=== PATIENT | male | born 1945 | race Caucasian/White ===

== ENCOUNTER 2017-12-21 10:30 | Emergency (ER) | payer MEDICARE, OTHER ==
[2017-12-21 10:49] VITALS: TEMP 96; O2SAT 99
--- NOTE | 2017-12-21 11:17 | RAD ---
EXAM DESCRIPTION: Chest,2 Views CLINICAL HISTORY: 72 years Male, fall Plavix COMPARISON: CT scan of the head without contrast on this visit. TECHNIQUE: AP and lateral images. FINDINGS: Mild hyperinflation. Atelectasis versus scarring in the left base. Senescent densities bilaterally. No consolidation. No pleural effusion or pneumothorax. Aorta atherosclerotic calcification with no mediastinal widening. Mediastinal sternotomy wires. In size and pulmonary vascularity unremarkable. Decreased bone density in the thoracic spine with disc space narrowing. No compression deformities in the visualized vertebra. IMPRESSION: Probable atelectasis versus scarring left lung base. Otherwise no radiographic evidence of acute cardiopulmonary disease, pleural hemorrhage, or traumatic chest injury. Senescent lung markings. Electronically signed by: Sathya Viveros MD 12/21/2017 11:16 AM [employer]
--- NOTE | 2017-12-21 11:23 | CT ---
EXAM DESCRIPTION: Head: Computed Tomography. CLINICAL HISTORY: fall on street curb. Patient takes Plavix. COMPARISON: Chest x-ray on the same visit. TECHNIQUE: Non-helical axial scans through the skull and brain, at 2.5 mm intervals, non-contrast. Coronal and sagittal 2.0 mm reconstructions. Total Exam DLP: 859.97 mGy-cm. This exam was performed according to our departmental dose-optimization program which includes automated exposure control, adjustment of the mA and/or kV according to patient size and/or use of iterative reconstruction technique; to reduce radiation dose to as low as reasonably achievable (ALARA). FINDINGS: No hemorrhage, no mass-effect, and no midline shift. Minimal symmetric periventricular low-density in the white matter bilaterally. No abnormal radiodense material in the brain parenchyma. Vascular calcifications anterior and posterior circulations; physiologic calcifications in the pineal gland and choroid plexus. No effacement or displacement of the ventricles, CSF spaces, or subdural spaces. No extra axial fluid collection or hemorrhage. No gross abnormalities of the bony calvarium. Included paranasal sinuses and mastoid air cells are well - aerated. IMPRESSION: 1. No hemorrhage: intra-axial or extra-axial, no mass effect, no midline shift. . Minimal periventricular leukomalacia bilaterally most likely a result of cerebral microvascular disease. Ventricles cisterns and extra-axial spaces are mildly prominent but this is interpreted to be age-related. Electronically signed by: Sathya Viveros MD 12/21/2017 11:22 AM [employer] [facility]
[2017-12-21] MEDS ORDERED: NEOMYCIN-BACITRACIN-POLYMYXIN 0.9 GM UD TOP ONE (11:35)
--- NOTE | 2017-12-21 11:35 | ED.PDOC ---
History of Present Illness - General Chief Complaint: Head Injury Stated Complaint: head injury Time Seen by Provider: 12/21/17 10:40 Source: patient Exam Limitations: no limitations - History of Present Illness Initial Comments: The patient is a 72-year-old male presenting to the emergency room after having fallen outside. The patient was going up a step and had his hands incapacitated by scope when he fell forward. He had the ground with his forehead and has a mild abrasion and hematoma above the left eye. He is also complaining of some chest pain with movement. He did apparently hit his chest and strained himself while trying to catch himself. He has had a CABG in the past. He is not short of breath. He is not having any pain when he doesn't move. No pain prior to the event. No syncope or near-syncope. No altered mental status. No nausea or vomiting. No vision changes or hearing changes. No evidence of any broken nose. Extraocular movement appears preserved. The patient has good vision out of his right eye but chronically poor vision out of his left eye. He is alert oriented and interactive. Timing/Duration: momentarily Severity: mild Improving Factors: nothing Worsening Factors: nothing Associated Symptoms: denies symptoms Allergies/Adverse Reactions: Allergies Penicillins Allergy (Verified 12/21/17 10:49) Home Medications: Ambulatory Orders Clopidogrel Bisulfate [Plavix] 75 mg PO QD 12/21/17 Review of Systems - Review of Systems Constitutional: States: no symptoms reported EENTM: States: blurred vision - chronic on the left Respiratory: States: no symptoms reported Cardiology: States: chest pain - with movement Gastrointestinal/Abdominal: States: no symptoms reported Genitourinary: States: no symptoms reported Musculoskeletal: States: no symptoms reported Skin: States: see HPI Neurological: States: no symptoms reported Endocrine: States: no symptoms reported All other Systems: No Change from Baseline Past Medical History (General) - Patient Medical History Hx Stroke: No Hx Cardiac Disorders: Yes Hx Congestive Heart Failure: No Hx Hypertension: Yes Hx Diabetes: Yes Surgical History: coronary bypass surgery - Vaccination History Hx Tetanus, Diphtheria Vaccination: - unknown Hx Influenza Vaccination: No Hx Pneumococcal Vaccination: No - Social History Hx Tobacco Use: Yes Family Medical History - Family History Father Family History: Unknown Living Status: Unknown Physical Exam - Physical Exam General Appearance: Alert, Comfortable, No apparent distress Eye Exam: left other - ee history of present illness Ears, Nose, Throat: normal ENT inspection, normal pharynx Neck: full range of motion, supple Respiratory: lungs clear, normal breath sounds, no respiratory distress, no accessory muscle use Cardiovascular/Chest: normal peripheral pulses, no edema, other - the patient does have some diffuse anterior chest wall discomfort palpation. There are no lacerations. No crepitus. No bruising. Regular rate. Peripheral Pulses: radial,right: 2+, radial,left: 2+, dorsalis pedis,right: 2+, dorsalis pedis,left: 2+ Gastrointestinal/Abdominal: non tender, soft Rectal Exam: deferred Back Exam: normal inspection Extremity: normal range of motion, non-tender, normal inspection, no pedal edema , normal capillary refill Neurologic: material processor II-XII nml as tested, no motor/sensory deficits, alert, normal mood/affect, oriented x 3 Skin Exam: normal color Comments: Vital Signs - 8 hr 12/21/17 10:44 Temperature 96 F L Pulse Rate [ 62 Left Brachial] Respiratory 20 Rate Blood Pressure 188/87 [Left Arm] O2 Sat by Pulse 99 Oximetry Progress - Progress Progress: 12/21/17 11:36 the patient is a 72-year-old male presenting after a fall. There is no clinical evidence to support a concussion however a small one is still possible. Head CT shows no evidence of any acute intracranial abnormalities. There are chronic findings. Chest x-ray shows no evidence of any widening of the mediastinum. Sternotomy wires appear to be in place. No evidence of any pneumothorax. No evidence of any obvious fractured ribs. The patient will likely be sore for the next couple of weeks. The abrasion and hematoma above the left eye has been cleaned. He can apply an antibiotic ointment twice daily to help reduce likelihood of any infection. No repairs required as the abrasions are fairly superficial. He should follow-up with his primary care doctor towards the end of the week for reevaluation. Motrin can be used with food for discomfort reduction from his chest wall pain. Departure - Departure Clinical Impression: Scalp hematoma Qualifiers: Encounter type: initial encounter Qualified Code(s): S00.03XA - Contusion of scalp, initial encounter Chest wall muscle strain Qualifiers: Encounter type: initial encounter Qualified Code(s): S29.011A - Strain of muscle and tendon of front wall of thorax, initial encounter Disposition: Discharge to Home or Self Care Condition: Fair Departure Forms: ED Discharge - Pt. Copy, Patient Portal Self Enrollment Instructions: DI for Hematoma (Bruise) Diet: regular diet Activity: increase activity as tolerated Home Medications: Ambulatory Orders Clopidogrel Bisulfate [Plavix] 75 mg PO QD 12/21/17 Additional Instructions: the patient is a 72-year-old male presenting after a fall. There is no clinical evidence to support a concussion however a small one is still possible. Head CT shows no evidence of any acute intracranial abnormalities. There are chronic findings. Chest x-ray shows no evidence of any widening of the mediastinum. Sternotomy wires appear to be in place. No evidence of any pneumothorax. No evidence of any obvious fractured ribs. The patient will likely be sore for the next couple of weeks. The abrasion and hematoma above the left eye has been cleaned. He can apply an antibiotic ointment twice daily to help reduce likelihood of any infection. No repairs required as the abrasions are fairly superficial. He should follow-up with his primary care doctor towards the end of the week for reevaluation. Motrin can be used with food for discomfort reduction from his chest wall pain.
[2017-12-21 11:45] VITALS: BP 148/74
== END 2017-12-21 11:45 | disposition home or self-care (01) ==
LOC: ER 10:30
DX: S00.03XA Contusion of scalp, initial encounter (principal); S29.011A Strain of muscle and tendon of front wall of thorax, initial encounter; I10 Essential (primary) hypertension; E11.9 Type 2 diabetes mellitus without complications; Z95.1 Presence of aortocoronary bypass graft; Z79.02 Long term (current) use of antithrombotics/antiplatelets; W10.9XXA Fall (on) (from) unspecified stairs and steps, initial encounter; Y92.89 Other specified places as the place of occurrence of the external cause